=== PATIENT | female | born 1985 | race Caucasian/White ===

== ENCOUNTER 2018-08-27 11:42 | Outpatient (REF) | payer OTHER, SELFPAY | END 2018-08-27 12:02 | LOC: LBN 11:42 | PROVIDERS: PCP Nurse Practitioner; Visit Provider Nurse Practitioner | DX: R10.9 Unspecified abdominal pain (principal) | CPT/HCPCS: 87086 ==

== ENCOUNTER 2018-09-04 00:40 | Outpatient (CLI) | payer OTHER, SELFPAY ==
--- NOTE | 2018-09-04 08:34 | DI.CT_ITS ---
SYMPTOMS/DIAGNOSIS: RIGHT FLANK PAIN, R10.[address]: There are no prior comparison exams. Images were performed from the level of the adrenals through the ischial tuberosities without IV or oral contrast. The visualized portions of the lung bases are clear. The liver, gallbladder, spleen , pancreas and adrenals are unremarkable. No renal calculi or hydronephrosis is seen. The kidneys are normal in size and orientation. The bladder is unremarkable. The uterus and ovaries are also unremarkable without contrast. There is a moderate quantity of stool. No bowel dilatation or inflammatory changes are seen. IMPRESSION: Negative renal colic CT.
== END 2018-09-04 01:00 ==
PROVIDERS: PCP Nurse Practitioner; Visit Provider Nurse Practitioner
DX: R10.31 Right lower quadrant pain (principal)
CPT/HCPCS: 74176